=== PATIENT | male | born 1980 | race Two or more races ===

== ENCOUNTER 2024-10-01 14:52 | Emergency (ER) | payer MEDICAID, SELFPAY ==
[2024-10-01 14:59] VITALS: BP 168/109; PULSE 83; RESP 18; TEMP 36.4; O2SAT 97
[2024-10-01 15:03] VITALS: BMI 27.3
--- NOTE | 2024-10-01 15:16 | PD.EDMEDCL ---
ED Medical Clearance RME/HPI General Chief complaint: Medical Clearance Stated complaint: GROUP HOME CLEARANCE Time Seen by Provider: 10/01/24 15:01 Arrival date/time: 10/01/24 14:52 RME / HPI RME / HPI Narrative: 43 year old male with no stated medical history presents to the ED for medical clearance for incarceration today. Per officer, patient was arrested for a DUI and brought in for evaluation. While in the ED patient has no complaints. He admits to drinking beer today. No MVA reported. Review of Systems Review of Systems Narrative Review of Systems: GEN: No fever, no chills, no weight loss EYES: No discharge, no visual changes, no pain HEENT: No ear pain, no congestion, no sore throat PULM: No shortness of breath, no cough, no congestion CV: No chest pain, no dyspnea on exertion, no palpitations GI: No nausea, no vomiting, no diarrhea, no pain, no constipation : No frequency, no urgency and no dysuria MUSC/SKEL No joint pain, no back pain SKIN: No rash PSYCH: +alcohol consumption. No hallucinations, no depression HEME/LYMPH: No easy bleeding or bruising tendencies NEURO: No weakness, no headache Past Medical History Social History SMOKING STATUS: Never smoker ED Exam Narrative Physical exam: GENERAL APPEARANCE: Well hydrated, well nourished, in no acute distress. VITALS: All vitals were reviewed and the pulse ox is 97% on room air which is normal according to my interpretation. HEENT: Normocephalic, atramatic, EOMI, EACs are patent. There is no bulge or retraction. Throat without erythema or exudate. Moist oromucosa. No jaundice NECK: Supple, no JVD or bruits. CARDIOVASCULAR: Heart regular without S3-S4 or murmur. No rubs or gallops. LUNGS/CHEST: Clear to auscultation bilaterally. No rales, rhonchi, or wheezing. Normal inspection. ABDOMEN: Soft, nontender, with normal bowel sounds. No pulsatile masses. No rebound, rigidity, or guarding. No incarcerated hernia. Normal inspection and palpation. EXTREMITIES: Normal inspection and palpation. No edema, clubbing, or cyanosis. Intact CSM SKIN: Warm and dry without rashes. Normal inspection. MUSCULOSKELETAL: Normal inspection. No gross deformity, full ROM all extremities NEURO: Alert and oriented x3. Cranial nerves II through XII grossly intact. There are no other motor or sensory deficits noted. PSYCHIATRIC: Normal mood and affect. No psychosis Course Quality Measures none Orders Category Date Time Status cloNIDine HCL [Catapres] Med 10/01/24 15:15 Discontinued 0.2 mg PO X1 ONE Vital Signs Vital signs: Vital Signs Temperature 97.5 F 10/01/24 14:59 Pulse Rate 83 10/01/24 14:59 Respiratory Rate 18 10/01/24 14:59 Blood Pressure 168/109 H 10/01/24 14:59 Pulse Oximetry (%) 97 10/01/24 14:59 Oxygen Delivery Method Room Air 10/01/24 14:59 Medical Clearance MDM Narrative MDM Narrative:: Patient was brought into the emergency department by lawn service supervisor for DUI. No MVA. No accident. The patient is alert. Oriented x 4 GCS of 15. Does not appear to be intoxicated. Pupils are normal. Lungs heart abdomen exam normal. Neuroexam is normal as well. No slurred speech. We found out that his blood pressure was 168/109. Therefore I gave to him 1 dose of clonidine 0.2 mg by mouth before DC to the lawn service supervisor. Patient data External records reviewed:: [facility] previous records (Per EMR, no previous records) Clinical information provided by:: patient and law enforcement Social determinants that could affect healthcare access:: alcohol use Patient has the following chronic illnesses:: None How is presenting disease/condition affected by chronic disease/condition?: no chronic disease Evaluation data The following diagnostics were reviewed and interpreted by me:: other (specify) (N/A ) Lab and/or radiology exams considered but not ordered:: None Interpretation Summary: N/A Medications / Prescriptions Medications or Prescriptions considered but not ordered:: None Medication administrations:: Medication Administration History Discontinued Medications Clonidine (Clonidine Hcl 0.1 Mg Tablet) 0.2 mg PO X1 ONE Stop: 10/01/24 15:16 See above Consultations Consultation(s) initiated? (list below): No Diagnosis Medical Clearance Differential Diagnosis: other (Alcohol intoxication, medical evaluation for medical screening exam, hypertension, hypertensive urgency ) Most likely diagnosis given after review of the tests above:: Medical clearance for incarceration Admission Indicated Admission indicated?: not indicated Admission Request Was there a request for admission?: No Disposition Plan Disposition Plan: Discharge Discharge Attestation Discharge Attestation: The patient and all family members were given an opportunity to ask questions and understood the discharge instructions. Discharge instructions specifically effects, indications for sooner follow up or return to the emergency department, and the expected course of current diagnosis. Patient condition: Stable Discharge Plan Plan Patient Disposition: Fpc/Court/Law Disposition Comment: Stable for DC Prescriptions/Referrals Referrals: Arlene),KOBE Rajan [Primary Care Provider] - In 1 week Problem List Clinical Impression: Medical clearance for incarceration Patient/Caregiver Discharge Instructions Education Materials: ED Medical Screening Exam, Nonemergent Additional Instructions: You were brought into the emergency department for senior care clearance. Blood pressure was 168/109. You have no history of hypertension. My recommendation for you is to follow-up with a healthcare provider in the next week or so to have the blood pressure rechecked. And if it continues to be elevated, you may need medication for high blood pressure. Print Language: Arabic
[2024-10-01 15:39] VITALS: BP 168/109; PULSE 83
[2024-10-01] MEDS: cloNIDine HCL 0.1 MG TABLET 0.2 MG PO (15:39)
[2024-10-01 16:01] VITALS: BP 139/98; PULSE 91
[2024-10-01 17:44] VITALS: BP 139/98
== END 2024-10-01 16:04 ==
PROVIDERS: Emergency Provider Emergency Medicine; PCP Physician Assistant
DX: Z02.89 Encounter for other administrative examinations (principal)
CPT/HCPCS: 99282; A9270